=== PATIENT | male | born 1955 | race Caucasian/White ===

== ENCOUNTER 2023-06-22 12:31 | Outpatient (CLI) | payer OTHER ==
[2023-06-22 13:43] LABS: #Eosinphils 0.1 10x3/uL (0.0-0.5); #Monocytes 0.5 10x3/uL (0.0-1.1); #Neutrophils 4.1 10x3/uL (1.5-8.4); %Basophils 0.5 % (0.0-2.0); %Eosinophils 1.5 % (0.0-6.0); %Lymphocytes 27.6 % (18.0-47.0); %Monocytes 7.7 % (0.0-10.0); %Neutrophils 62.4 % (40.0-75.0); Hematocrit 48.7 % (38.8-50.0); Hemoglobin 16.6 g/dL (13.5-17.5); Mean Corpuscular HGB CONC 34.1 g/dL (32.0-36.0); Mean Corpuscular Hemoglobin 29.3 pg (27.0-33.0); Mean Platelet Volume 9.8 fl (7.4-10.4); Platelet Count 252 10x3/uL (150-450); Red Blood Cell (RBC) Count 5.66 10x6/uL (4.32-5.72); White Blood Cell (WBC) Count 6.5 10x3/uL (3.5-10.5)
[2023-06-22 14:09] LABS: Anion Gap 14 mmol/L (10-20); BUN (Urea Nitrogen) 17 mg/dL (8.4-25.7); Calc. Creatinine Clearance 0 mL/min (70-130); Calcium 8.5 mg/dL (7.8-10.44); Carbon Dioxide 22 mmol/L (23-31); Chloride 108 mmol/L (98-107); Estimated GFR 94; Glucose 93 mg/dL (80-115); Potassium 4.3 mmol/L (3.5-5.1); Sodium 140 mmol/L (136-145)
== END 2023-06-22 12:32 | disposition home or self-care (01) ==
LOC: LABBT 12:31
PROVIDERS: ATTEND Orthopaedic Surgery
DX: Z01.818 Encounter for other preprocedural examination (principal); M75.112 Incomplete rotator cuff tear or rupture of left shoulder, not specified as traumatic
CPT/HCPCS: 80048; 85025; 93005; 93010

== ENCOUNTER 2023-06-25 05:45 | Day surgery (SDC) | payer OTHER ==
[2023-06-22 13:33] VITALS: BMI 31.4
[2023-06-25] MEDS ORDERED: Midazolam HCl 2 mg/2 ml Vial ONE (05:53)
[2023-06-25] MEDS ORDERED: Dexmedetomidine 200 MCG/2 ML VIAL ONE (05:53)
[2023-06-25] MEDS ORDERED: PROPOFOL 20 ML ONE ×2 (05:53→08:17)
[2023-06-25] MEDS ORDERED: fentaNYL PF 100 MCG/2 ML SYRINGE ONE (05:54)
[2023-06-25] MEDS ORDERED: Rocuronium Bromide 10 MG/ML (10ML VIAL) ONE (05:57)
[2023-06-25] MEDS ORDERED: Sodium Chloride 0.9% 300 ML ONE (06:02)
[2023-06-25] MEDS ORDERED: Lidocaine 1% (PF) 30 ML VIAL ONE ×2 (06:13→06:54)
[2023-06-25] MEDS ORDERED: Ropivacaine 0.2% HCl/PF 20 ML ONE (06:13)
[2023-06-25] MEDS ORDERED: Ropivacaine 0.5% HCl/PF (150 MG/30 ML VIAL) ONE (06:13)
[2023-06-25] MEDS ORDERED: EPINEPHrine 1 MG/ML VIAL ONE (06:53)
[2023-06-25] MEDS ORDERED: Sodium Chloride 0.9% 100 ML ONE (06:54)
[2023-06-25] MEDS ORDERED: CEFAZOLIN 2 GM VIAL ONE (06:54)
[2023-06-25] MEDS ORDERED: fentaNYL 50 mcg/mL 1 mL Vial SLOW IVP PRN (07:10)
[2023-06-25] MEDS ORDERED: Ondansetron PF 4 MG/2 ML Vial IVP PRN (07:15)
[2023-06-25] MEDS ORDERED: Zolpidem Tartrate 5 MG TAB PO PRN (07:15)
[2023-06-25] MEDS ORDERED: Promethazine HCl 25 MG/ML VIAL IM PRN (07:15)
[2023-06-25] MEDS ORDERED: HYDROcodone/Acetaminophen 5/325 mg Tablet PO PRN ×2 (07:15)
[2023-06-25] MEDS ORDERED: Ropivacaine 0.2% 550 ML 550 ML NERVE BLCK SCH (07:15)
[2023-06-25] MEDS ORDERED: traMADol HCl 50 MG TAB PO PRN ×2 (07:15)
[2023-06-25] MEDS ORDERED: ePHEDrine Sulfate 50 MG/10 ML VIAL ONE (07:21)
[2023-06-25] MEDS ORDERED: Dexamethasone 4 mg/ml Vial ONE (07:30)
[2023-06-25] MEDS ORDERED: Ondansetron PF 4 MG/2 ML Vial ONE (07:30)
[2023-06-25] MEDS ORDERED: Glycopyrrolate 0.2 MG/ML 5 ML SYRINGE ONE (08:07)
[2023-06-25] MEDS ORDERED: NEOSTIGMINE 3 MG/3 ML SYR 3 MG/3 ML SYRINGE ONE (08:07)
[2023-06-25] MEDS ORDERED: Ketorolac Tromethamine 30 MG (1 mL) VIAL IVP SCH (12:00)
== END 2023-06-25 10:40 | disposition home or self-care (01) ==
LOC: SDC 05:45
PROVIDERS: ATTEND Orthopaedic Surgery
PROC: 0RBK4ZZ Excision of Left Shoulder Joint, Percutaneous Endoscopic Approach (ICD-10-PCS; principal; 2023-06-25)
DX: M75.112 Incomplete rotator cuff tear or rupture of left shoulder, not specified as traumatic (principal); M19.012 Primary osteoarthritis, left shoulder; M75.52 Bursitis of left shoulder; I10 Essential (primary) hypertension; E78.5 Hyperlipidemia, unspecified; Z79.899 Other long term (current) drug therapy
CPT/HCPCS: A4306; J0171; J1100; J2001; J2250; J2405; J2704; J2795; J3490